=== PATIENT | female | born 1975 | race Caucasian/White ===

== ENCOUNTER 2017-07-21 13:06 | Emergency (ER) | payer MEDICAID ==
[2017-07-21 13:28] VITALS: BP 160/101
[2017-07-21] MEDS ORDERED: Amoxicillin/Clavulanate K 875-125 MG Tab ONE (13:40)
--- NOTE | 2017-07-21 14:54 | ER ---
HPI: A 42-year-old female here with complaints of her left breast being red and painful. She has had some mild symptoms for the last 2-3 days but now within the last 24 hours, it has become more tender and red. The patient is not currently . Her youngest child is 4 years of age. She denies any injury to this area and does not feel that she is sick or running a fever. OBJECTIVE: GENERAL APPEARANCE: The patient is awake and alert. No obvious distress. VITAL SIGNS: Reviewed. She is afebrile. Blood pressure 160/101. She tells me she just drank a red bull on the way into the emergency room. HEENT: Examining the left breast reveals a macular erythematous rash from the nipple line and up to almost the top of the breast. The area is warm to touch and there is central induration just above the nipple as well consistent with mastitis. There is no drainage from the nipple. DIAGNOSIS: Mastitis, left breast. TREATMENT PLAN: Augmentin 875 b.i.d. for 10 days. The patient is to use warm packs or hot packs 3-4 times a day for the next couple of days and then as needed. If her condition is not improving or gets worse, she should come in as needed over the next couple of days. Otherwise recheck should be in 10-14 days to make sure her condition has totally resolved. She may also need an ultrasound. RENATE/ROXY /[id number]
== END 2017-07-21 13:46 | disposition home or self-care (01) ==
LOC: LB.ED 13:06
DX: N61.0 Mastitis without abscess (principal)
CPT/HCPCS: 99283; A9270

== ENCOUNTER 2019-10-01 09:22 | Emergency (ER) | payer MEDICAID ==
[2019-10-01 11:00] VITALS: BP 132/93; PULSE 97
--- NOTE | 2019-10-01 11:53 | EDM.PDOC ---
ED HPI GENERAL MEDICAL PROBLEM - General Chief Complaint: ENT Problem Stated Complaint: abscess tooth Time Seen by Provider: 10/01/19 10:00 Source of Information: Reports: Patient History Limitations: Reports: No Limitations - History of Present Illness INITIAL COMMENTS - FREE TEXT/NARRATIVE: This patient presents to the ED for evaluation of facial swelling. She was diagnosed with a dental abscess earlier this week and started on PCN. She was seen a 2nd time this past week and was given hydrocodone for the pain. She did take that last night and woke this morning for facial swelling. She states she has been taking the PCN as well. She denies any difficulty breathing, rash, other symptoms or concerns. The patient is concerned she has developed an allergy to the medications. She has been evaluated by an oral surgeon and will be having the problem ultimately managed next week. Treatments HYDROLOGIST: Reports: Other (see below) Other Treatments HYDROLOGIST: vicoden,penicillin Left Jaw Pain Score (Numeric/FACES): 5 - Related Data Allergies Allergy/AdvReac Type Severity Reaction Status Date / Time No Known Allergies Allergy Verified 10/25/15 20:14 Home Meds: Home Meds Penicillin V Potassium 500 mg PO Q4HR 10/01/19 [History] ED ROS ENT - Review of Systems Review Of Systems: See Below Constitutional: Denies: Fever, Chills, Decreased Appetite HEENT: Reports: Dental Pain Respiratory: Denies: Shortness of Breath, Wheezing, Cough Cardiovascular: Denies: Chest Pain GI/Abdominal: Reports: No Symptoms Musculoskeletal: Reports: No Symptoms Skin: Denies: Rash Neurological: Reports: No Symptoms ED EXAM, ENT - Physical Exam Exam: See Below Exam Limited By: No Limitations General Appearance: Alert, WD/WN, No Apparent Distress Eye Exam: Bilateral Eye: PERRL Ears: Normal External Exam Nose: Normal Inspection Mouth/Throat: Normal Gums, Normal Lips, Normal Oropharynx, Dental Abcess, Dental Pain, Other (lip edema minimal). No: Throat Swelling, Tongue Swelling Head: Atraumatic, Normocephalic Respiratory/Chest: No Respiratory Distress, Lungs Clear, Normal Breath Sounds. No: Respiratory Distress, Wheezing, Stridor, Accessory Muscle Use Extremities: Normal Inspection, Normal Range of Motion Neurological: Alert, Oriented Psychiatric: Normal Affect, Normal Mood Skin: Warm, Dry, No Rash Course - Vital Signs Text/Narrative:: this patient presents for evaluation of lip swelling. Signs and symptoms are consistent with an advancing dental condition rather than an allergic reaction or anaphylaxis. They look well upon arrival and at discharge. She was encouraged to continue her current medications, use ibuprofen for pain and swelling restricting the hydrocodone for severe pain only. She was also encouraged to keep her appointment with her dental provider for definitive care. Given her lack of serious systemic symptoms, lack of respiratory difficulty and no oral or pharyngeal swelling, she is stable for discharge. Last Recorded V/S: Last Vital Signs Temp 36.2 C 10/01/19 09:55 Pulse 97 10/01/19 09:55 Resp 16 10/01/19 09:55 BP 132/93 H 10/01/19 09:55 Pulse Ox 94 L 10/01/19 09:55 Departure - Departure Time of Disposition: 10:40 Disposition: Left Without Being Seen 07 Clinical Impression: Dental abscess - Discharge Information *PRESCRIPTION DRUG MONITORING PROGRAM REVIEWED*: No Instructions: Dental Abscess, [id number] Referrals: PCP,None [Primary Care Provider] - Forms: ED Department Discharge Care Plan Goals: Apply heat as directed. Take ibuprofen 800mg 3 x day between vicoden as needed for pain. Take ibuprofen 800 for inflammation even if pain not bad. Can add benadryl as directed. Return if trouble breathing develops.
== END 2019-10-01 10:25 | disposition left against medical advice (07) ==
LOC: LB.ED 09:22
DX: K04.7 Periapical abscess without sinus (principal)
CPT/HCPCS: 99283